=== PATIENT | female | born 1985 | race Caucasian/White ===

== ENCOUNTER 2016-02-26 15:27 | Emergency (ER) | payer BC ==
[~2016-02-26] VITALS: Ht 165.1 cm; Wt 68.0 kg
[2016-02-26] MEDS: Metoclopramide 10mg/10ml Liq ORAL ONE ×2 (15:58→16:05)
[2016-02-26 16:05] VITALS: BP 113/75
[2016-02-26] MEDS ORDERED: ZOFRAN4 M3 ORAL (16:43)
[2016-02-26 16:57] VITALS: BP 113/75
--- NOTE | 2016-02-26 20:32 | Emergency Room Report ---
History of Present Illness General Chief Complaint: Pain Source: Patient Present Illness HPI The patient is a 30-year-old female with a history of migraine headaches presenting for nausea, vomiting, diarrhea, and migraine headache. The patient states that in the past 2 days she has had multiple episodes of diarrhea and vomiting which are improving. The patient states that she then developed a migraine headache today which is typical for her migraine headaches and is felt as a frontal 10 out of 10 dull ache. The patient denies fever, chills, cough, chest pain, shortness of breath, abdominal pain, dizziness, blurred vision Allergies: Coded Allergies: AMOXICILLIN (Verified Allergy, Unknown, 02/26/16) Patient History Past Medical History: see triage record Pertinent Family History: none Last Menstrual Period: 02/19/16 Now: No Reviewed Nursing Documentation: PMH: Agreed, PSxH: Agreed Nursing Documentation-PMH Past Medical History: No History, Except For Review of Systems All Other Systems: negative except mentioned in HPI Physical Exam Vital Signs Date Time Temp Pulse Resp B/P Pulse Ox O2 Delivery O2 Flow Rate FiO2 02/26/16 15:39 98.4 91 14 113/75 99 Room Air Sp02 EP Interpretation: reviewed, normal General Appearance: no apparent distress, alert, GCS 15, non-toxic Head: normocephalic, atraumatic Eyes: bilateral eye PERRL, bilateral eye normal inspection ENT: hearing grossly normal, normal pharynx, no angioedema, normal voice, TMs + canals normal, uvula midline, moist mucus membranes Neck: full range of motion, supple/symm/no masses Respiratory: chest non-tender, lungs clear, normal breath sounds, speaking full sentences Cardiovascular #1: regular rate, rhythm, no edema Gastrointestinal: non tender, soft, non-distended, no guarding, no rebound, abnormal bowel sounds - increased Genitourinary: normal inspection, no CVA tenderness Musculoskeletal: back normal, gait/station normal, normal range of motion, non- tender, calf tenderness Neurologic: alert, oriented x3, responsive, motor strength/tone normal, sensory intact, speech normal Psychiatric: judgement/insight normal, memory normal, mood/affect normal, no suicidal/homicidal ideation Reflexes: 3+ bicep (R), 3+ bicep (L), 3+ tricep (R), 3+ tricep (L), 3+ knee (R) , 3+ knee (L) Skin: normal color, no rash, warm/dry, well hydrated Medical Decision Making PA Attestation Dr. Stubbs is my supervising physician. Patient management was discussed with my supervising physician Diagnostic Impression: Primary Impression: Gastroenteritis Additional Impression: Migraine headache ER Course The patient is a 30-year-old female presenting for nausea, vomiting, diarrhea, and migraine headache Differential diagnosis considered: Gastroenteritis, appendicitis, migraine headache, tension headache PE: Vitals WNL. NAD. Head NC/AT. No sinus tenderness. HEENT unremarkable. Abdomen: Normal appearance. Non distended. No ecchymosis. Non TTP. No McBurney point tenderness. No guarding. Hyperactive BS. No CVA tenderness The patient is given Tylenol and Reglan with good relief of her migraine. Urine is negative The patient will be discharged home with a prescription for Zofran and will follow up with primary care physician. Patient will continue to take in plenty of fluids. ER precautions are given Laboratory Tests Test 02/26/16 16:04 Urine HCG, Qualitative Negative Lab Results Impression Neg preg Last Vital Signs Date Time Temp Pulse Resp B/P Pulse Ox O2 Delivery O2 Flow Rate FiO2 02/26/16 16:57 98.4 02/26/16 16:57 89 14 113/75 99 Room Air Status: improved Disposition: HOME, SELF-CARE Condition: Improved Scripts Ondansetron* (ZOFRAN*) 4 Mg Tablet 4 MG ORAL Q6H Y for Nausea & Vomiting, #15 TAB Prov: TILA ARANGO 02/26/16 Patient Instructions: Viral Gastroenteritis, Adult Additional Instructions: I discussed my findings with the patient. All questions and concerns have been answered. Treatment and medication compliance have been addressed. I advised the patient that they need to follow up with PMD in 3-5 days. Return to ED if symptoms worsen, new symptoms arise, or if needed for any reason. Patient verbalized understanding of discharge instructions. TILA ARANGO Feb 26, 2016 20:31
== END 2016-02-26 16:57 | disposition home or self-care (01) ==
LOC: EMR 16:10
DX: G43.909 Migraine, unspecified, not intractable, without status migrainosus (principal); K52.9 Noninfective gastroenteritis and colitis, unspecified; Z88.1 Allergy status to other antibiotic agents
CPT/HCPCS: 81025; 99283